=== PATIENT | female | born 1960 | race Asian ===

== ENCOUNTER → 2024-08-07 | Outpatient (CLI) | payer MEDICAID, SELFPAY ==
--- NOTE | 2024-08-07 15:36 | RAD_ITS ---
EXAM: XR LEFT HIP WITH PELVIS WHEN PERFORMED, 2 OR 3 VIEWS CLINICAL INDICATION: PAIN IN LEFT HIP TECHNIQUE: Two or three views of the left hip with pelvis when performed. COMPARISON: No relevant prior studies available. FINDINGS: BONES/JOINTS: Severe degenerative changes of the left hip with complete joint space loss, sclerosis and subchondral cyst formation. Deformity of the weightbearing surface of the femoral head with lateral subluxation of the femur relative to the acetabulum. No displaced fracture. Sacroiliac joint is unremarkable. No widening of the pubic symphysis. SOFT TISSUES: Unremarkable. No soft tissue swelling or gas. RAD/HIP, UNI W/ Pelvis 2-3 Views IMPRESSION: Severe degenerative changes of the left hip with complete joint space loss, sclerosis and subchondral cyst formation. Deformity of the weightbearing surface of the femoral head with lateral subluxation of the femur relative to the acetabulum. Electronically Signed: Rafael Hernandez MD at 23:28 EST ,
== END | disposition home or self-care (01) ==
LOC: RAD 15:26
DX: M25.552 Pain in left hip (principal)
CPT/HCPCS: 73502

== ENCOUNTER → 2024-10-05 | Outpatient (CLI) | payer MEDICAID, SELFPAY ==
[2024-10-05 12:46] LABS: Absolute Lymphocyte Count 1.59 X10^3/uL (0.83-4.51); Absolute Neutrophil Count 4.3 X10^3/uL (2.0-7.7); Basophil# 0.04 X10^3/uL; Basophil% 0.6 % (0-1); Eosinophil# 0.41 X10^3/uL; Eosinophils% 6.1 % (0-5); Hematocrit 42.5 % (37-47); Hemoglobin 13.7 g/dL (12.0-15.0); Lymphocyte # 1.59 X10^3/ul (0.83-4.51); Lymphocyte % 23.7 % (19-41); Mean Corp Hgb Conc 32.2 g/dL (32-36); Mean Corpuscular Hgb 27.8 pg (27.0-32.0); Mean Corpuscular Volume 86.4 fL (81-99); Mean Platelet Vol. 8.6 fl (6.2-12.0); NRBC Flagged by Analyzer 0 % (0-5); Neutrophil # 4.26 X10^3/uL (2.7-7.7); Neutrophil % 63.5 % (47-70); Platelet Count 272 K/mm3 (150-450); RBC Distribution Width CV 13.1 % (11.6-14.6); RBC Distribution Width SD 40.8 fl (35.1-43.9); Red Blood Count 4.92 M/mm3 (4.2-5.4); White Blood Count 6.7 K/mm3 (4.4-11.0)
[2024-10-05 13:06] LABS: ALB/GLOB Ratio 0.8 RATIO (0.9-2.4); AST(SGOT) 23 U/L (15-37); Alanine Aminotransfer ALT/SGPT 31 U/L (13-56); Albumin, Serum 3.7 g/dL (3.2-5.0); Alkaline Phosphatase 73 U/L (45-117); Anion Gap 7 (5-15); BUN 13 mg/dL (7-18); Calcium,Total 9.3 mg/dL (8.5-10.1); Chloride 107 mmol/L (98-107); Creatinine, Serum 0.72 mg/dL (0.55-1.02); EST Glomerular Filtration Rate 87 mL/min (>60); Est Glom Filt Rate - Afr Amer 105 mL/min (>60); Globulin 4.7 g/dL (2.2-4.2); Glucose 88 mg/dL (74-106); Potassium 3.5 mmol/L (3.5-5.1); Protein, Total 8.4 g/dL (6.4-8.2); Sodium Level 140 mmol/L (136-145)
== END | disposition home or self-care (01) ==
LOC: VSLAB 11:54
DX: Z01.818 Encounter for other preprocedural examination (principal)
CPT/HCPCS: 36415; 80053; 84443; 85025

== ENCOUNTER → 2024-10-23 | Outpatient (CLI) | payer MEDICAID, SELFPAY ==
--- NOTE | 2024-10-23 19:02 | CT_ITS ---
PROCEDURE: EXTREMITY LOWER WITHOUT CONTRA REASON FOR EXAM: TEMPLATING FOR LEFT EZE Ermias protocol. TECHNIQUE: Multiple axial tomographic images were obtained of the right hip, right knee and right ankle. Coronal and sagittal reconstruction was obtained as well. COMPARISON: None. FINDINGS: Bones: No evidence of fracture. Joints: Marked degree of joint space narrowing with subchondral cystic changes and deformity of the left femoral head. Mild cephalic migration of the proximal left femur. This is in keeping with severe osteoarthritis and possible avascular necrosis. Subchondral cystic changes with sclerosis also seen in the acetabulum. Imaging of the left knee joint was obtained. There is a marked degree of joint space narrowing involving the medial compartment of the knee joint. Soft Tissues: Unremarkable. CT/Extremity Lower without Contra IMPRESSION: Marked degree of joint space narrowing with subchondral cystic changes in the l evel of the acetabulum and femoral head suggestive of severe osteoarthritis and possible avascular necrosis. One or more dose reduction techniques were used (e.g., Automated exposure contr ol, adjustment of the mA and/or kV according to patient size, use of iterative reconstruction technique). Reading Location: [place] [id number]
== END | disposition home or self-care (01) ==
PROVIDERS: Referring Provider Orthopaedic Surgery; Visit Provider Orthopaedic Surgery
DX: M16.12 Unilateral primary osteoarthritis, left hip (principal)
CPT/HCPCS: 73700

== ENCOUNTER → 2025-05-07 | Day surgery (SDC) | payer MEDICAID, SELFPAY ==
--- NOTE | 2024-11-03 12:26 | EKG12_ITS ---
Test Reason : PRE OP Blood Pressure : */* mmHG Vent. Rate : 77 BPM Atrial Rate : 77 BPM P-R Int : 130 ms QRS Dur : 82 ms QT Int : 386 ms P-R-T Axes : 60 42 76 degrees QTcB Int : 436 ms Normal sinus rhythm Normal ECG Confirmed by MARISEL ZURITA, FAUZIA ([id number]), newspaper photo editor KACY FERRO ([id number]) on 11/04/2024 7:11:31 AM Referred By: Memo Stevenson Confirmed By: FAUZIA JOINER MD
[2024-11-03 13:17] LABS: Prothrombin Time (Protime)PT. 13.2 SECONDS (11.7-14.9)
[2024-11-03 13:18] LABS: Partial Thromboplast Time 26.8 Seconds (24.1-36.2)
[2024-11-03 13:35] LABS: Magnesium 2.3 mg/dL (1.5-2.2)
== END | disposition home or self-care (01) ==
LOC: PAT 13:30
PROVIDERS: Anesthesiology; Referring Provider Orthopaedic Surgery; Visit Provider Orthopaedic Surgery
DX: Z01.818 Encounter for other preprocedural examination (principal); Z53.09 Procedure and treatment not carried out because of other contraindication
CPT/HCPCS: 36415; 82985; 83036; 83735; 85610; 85730; 86850; 86900; 86901; 87077; 87081; 93005